=== PATIENT | male | born 1985 | race Caucasian/White ===

== ENCOUNTER 2017-07-13 18:54 | Emergency (ER) | payer BC ==
[~2017-07-13] VITALS: Ht 185.4 cm; Wt 97.7 kg
[2017-07-13] MEDS ORDERED: IBUPROFEN 600 MG TABLET. PO ONE (20:00)
[2017-07-13] MEDS ORDERED: IV NORMAL SALINE 1,000ML 1,000 ML IV SCH (20:00)
[2017-07-13] MEDS ORDERED: KETOROLAC 30 MG/ML VIAL. IV ONE (20:00)
[2017-07-13 20:30] LABS: BASO # 0.1 x10^3/uL (0.0-0.2); BASO % 1 % (0-3); EOS # 0.1 x10^3/uL (0.0-0.7); EOS % 1 % (0-3); HEMATOCRIT 40.8 % (39.0-53.0); HEMOGLOBIN 14.5 g/dL (13.0-17.5); LYMPH # 1.8 x10^3/uL (1.0-4.8); LYMPH % 17 % (24-48); MEAN CORPUSCULAR HEMOGLOBIN 31 pg (25-35); MEAN CORPUSCULAR HGB CONC 36 g/dL (31-37); MEAN CORPUSCULAR VOLUME 87 fL (79-100); MONO # 0.9 x10^3/uL (0.0-1.1); MONO % 8 % (0-9); NEUT # 7.8 x10^3uL (1.8-7.7); NEUT % 74 % (31-73); PLATELET COUNT 178 x10^3/uL (140-400); RED BLOOD COUNT 4.71 x10^6/uL (4.30-5.70); RED CELL DISTRIBUTION WIDTH 12.6 % (11.5-14.5); WHITE BLOOD COUNT 10.6 x10^3/uL (4.0-11.0)
[2017-07-13] MEDS ORDERED: IOHEXOL 300 MG/ML 75 ML VIAL. IV ONE (20:30)
[2017-07-13] MEDS ORDERED: IV NORMAL SALINE 500ML 500 ML ONE (20:32)
[2017-07-13 20:40] LABS: ALBUMIN 4.5 g/dL (3.4-5.0); ALBUMIN/GLOBULIN RATIO 1.3 (1.0-1.7); CALCIUM 9.2 mg/dL (8.5-10.1); CREATININE 1.3 mg/dL (0.7-1.3); GFR 63.6; TOTAL BILIRUBIN 0.4 mg/dL (0.2-1.0); TOTAL PROTEIN 7.9 g/dL (6.4-8.2)
[2017-07-13 20:59] LABS: BACTERIA,URINE 0 /HPF (0-FEW); BILIRUBIN,URINE NEG (NEG); CLARITY,URINE HAZY; COLOR,URINE YELLOW; GLUCOSE,URINE NEG (NEG); NITRITE,URINE NEG (NEG); SQUAMOUS EPITHELIAL CELL,UR FEW /LPF; UROBILINOGEN,URINE 1 mg/dL (0.2 mg/dL)
--- NOTE | 2017-07-13 21:26 | RAD ---
CT ABDOMEN PELVIS WO/W dated 07/13/2017 7:45 PM Indication: Left upper quadrant and left rib pain Comparison: None Technique: Pre and postcontrast CT imaging was performed of the abdomen and pelvis. Multiplanar reconstruction images submitted. One or more of the following individualized dose reduction techniques were utilized for this examination: 1. Automated exposure control 2. Adjustment of the mA and/or kV according to patient size 3. Use of iterative reconstruction technique. Contrast: 75 cc Omnipaque 300 Findings: While reportedly there is contrast injected, there is no significant contrast in the postcontrast images. There are no renal or ureteral calculi. There is no hydronephrosis. Accurate evaluation of the abdominal visceral organs is limited without significant contrast enhancement, no obvious focal abnormality of the liver, spleen or pancreas. There is no adrenal nodularity. Gallbladder is present without obvious intraluminal abnormality by CT. Accurate evaluation of bowel is limited without oral contrast. There is no significant bowel dilatation, free air, free fluid. There may be some small bowel wall thickening in the left upper abdomen. There is retained stool greatest of ascending through transverse colon. Appendix caliber is within normal limits at 0.5 cm, no significant adjacent inflammatory-type change. There is nonspecific lytic lesion posteriorly of the L3 vertebral body. There are multilevel Schmorl's nodes. IMPRESSION: 1. There may be small bowel wall thickening in the left upper quadrant which can be seen with enteritis, no other significant acute abnormality identified. While reportedly contrast was administered, there is no significant contrast enhancement on the postcontrast images. Evaluation of patient's injection site is advised for any signs of contrast infiltration. 2. There is retained stool in the colon. 3.There is nonspecific lytic lesion posteriorly of the L3 vertebral body. There are multilevel Schmorl's nodes. Electronically signed by: Al Mancia MD (07/13/2017 9:23 PM) [facility]
--- NOTE | 2017-07-13 22:11 | EKG ---
[address] [address] Test Date: 2017-07-13 Test Time: 19:33:18 Pat Name: KANDI LI Department: Room: Gender: M [employer]: : 1985 Requested By: GUSTAVO GERBER Order Number: [id number] Reading MD: Measurements Intervals Benedict Rate: 86 P: 38 AZ: 154 QRS: -54 QRSD: 106 T: 36 QT: 362 QTc: 436 Interpretive Statements SINUS RHYTHM ABNORMAL LEFT AXIS DEVIATION LEFT ANTERIOR FASCICULAR BLOCK ABNORMAL ECG RI6.01 No previous ECG available for comparison
--- NOTE | 2017-07-13 23:44 | RAD ---
CHEST PA LATERAL History: Left-sided rib and chest pain Comparison: None. Findings: There is no infiltrate, pneumothorax, or effusion. The cardiac silhouette is within normal limits in size. The trachea is in the midline. No acute osseous abnormality is identified. Impression: 1. There is no evidence of acute cardiopulmonary disease. Electronically signed by: Al Mancia MD (07/13/2017 11:40 PM) [facility]
--- NOTE | 2017-07-14 00:24 | PHYS DOC ---
Past History Past Medical History: No Pertinent History Past Surgical History: No Surgical History Additional Smoking Information: HALF A PACK Alcohol Use: None Drug Use: None Adult General Chief Complaint Chief Complaint: RIB PAIN [facility] HPI 31-year-old male who works at a [employer] now complaining of sudden transient pain in the left flank area. Patient thinks he got a sudden cramp in his left upper abdomen but is not sure if it was his left lower chest. He reports normal bowel and bladder habits and has never had a kidney stone. The pain is now improved. When he had the discomfort it was worse with taking a deep breath and he still feels some mild discomfort if he takes a deep inspiration or coughs. No prodromal illness. Patient was at work and has been feeling fine today. He denies being constipated or having chronic recurrent abdominal pain. No history of intra-abdominal problems. She has no exertional chest pain and is not feeling short of breath at all. No tachycardia on arrival Review of Systems Review of Systems Constitutional: Denies fever or chills [] Eyes: Denies change in visual acuity, redness, or eye pain [] HENT: Denies nasal congestion or sore throat [] Respiratory: Denies cough or shortness of breath [] Cardiovascular: No additional information not addressed in HPI [] GI: Denies abdominal pain, nausea, vomiting, bloody stools or diarrhea [] : Denies dysuria or hematuria [] Musculoskeletal: Denies back pain or joint pain [] Integument: Denies rash or skin lesions [] Neurologic: Denies headache, focal weakness or sensory changes [] Endocrine: Denies polyuria or polydipsia [] Current Medications Current Medications Current Medications Medications (Trade) Dose Ordered Sig/Gaby Start Time Stop Time Status Last Admin Dose Admin Ibuprofen (Motrin) 600 mg 1X ONCE 07/13/17 20:00 07/13/17 20:01 DC 07/13/17 20:17 600 MG Iohexol (Omnipaque 300 Mg/ml) 75 ml 1X ONCE 07/13/17 20:30 07/13/17 20:31 DC 07/13/17 20:53 75 ML Ketorolac Tromethamine (Toradol) 30 mg 1X ONCE 07/13/17 20:00 07/13/17 20:01 DC 07/13/17 20:16 30 MG Sodium Chloride 500 ml @ As Directed STK-MED ONCE 07/13/17 20:32 07/13/17 20:33 DC Allergies Allergies Allergies Uncoded Allergies Type Severity Reaction Last Updated Verified MINT Adverse Reaction Unknown 07/13/17 Physical Exam Physical Exam Well-appearing 31-year-old male in no acute distress. Supple neck clear lungs regular rate and rhythm no rib tenderness. Symmetrical breath sounds which are normal. No subcutaneous air of the chest wall. Minimal left subcostal tenderness without guarding or rebound. Normal bowel sounds no mass or megaly. Nondistended with no skin changes. No CVA tenderness. No reproducible focal rib tenderness. Constitutional: Well developed, well nourished, no acute distress, non-toxic appearance. [] HENT: Normocephalic, atraumatic, bilateral external ears normal, oropharynx moist, no oral exudates, nose normal. [] Eyes: PERRLA, EOMI, conjunctiva normal, no discharge. [] Neck: Normal range of motion, no tenderness, supple, no stridor. [] Cardiovascular:Heart rate regular rhythm, no murmur [] Lungs & Thorax: Bilateral breath sounds clear to auscultation [] Abdomen: Bowel sounds normal, soft, as above, no masses, no pulsatile masses. [ ] Skin: Warm, dry, no erythema, no rash. [] Back: No tenderness, no CVA tenderness. [] Extremities: No tenderness, no cyanosis, no clubbing, ROM intact, no edema. [] Neurologic: Alert and oriented X 3, normal motor function, normal sensory function, no focal deficits noted. [] Psychologic: Affect normal, judgement normal, mood normal. [] Current Patient Data Vital Signs Vital Signs Date Time Temp Pulse Resp B/P (MAP) Pulse Ox O2 Delivery O2 Flow Rate FiO2 07/13/17 19:30 98.0 95 20 97 Room Air Lab Results Laboratory Tests Test 07/13/17 20:00 White Blood Count 10.6 x10^3/uL (4.0-11.0) Red Blood Count 4.71 x10^6/uL (4.30-5.70) Hemoglobin 14.5 g/dL (13.0-17.5) Hematocrit 40.8 % (39.0-53.0) Mean Corpuscular Volume 87 fL (79-100) Mean Corpuscular Hemoglobin 31 pg (25-35) Mean Corpuscular Hemoglobin Concent 36 g/dL (31-37) Red Cell Distribution Width 12.6 % (11.5-14.5) Platelet Count 178 x10^3/uL (140-400) Neutrophils (%) (Auto) 74 % (31-73) H Lymphocytes (%) (Auto) 17 % (24-48) L Monocytes (%) (Auto) 8 % (0-9) Eosinophils (%) (Auto) 1 % (0-3) Basophils (%) (Auto) 1 % (0-3) Neutrophils # (Auto) 7.8 x10^3uL (1.8-7.7) H Lymphocytes # (Auto) 1.8 x10^3/uL (1.0-4.8) Monocytes # (Auto) 0.9 x10^3/uL (0.0-1.1) Eosinophils # (Auto) 0.1 x10^3/uL (0.0-0.7) Basophils # (Auto) 0.1 x10^3/uL (0.0-0.2) Urine Collection Type Unknown Urine Color Yellow Urine Clarity Hazy Urine pH 5.5 Urine Specific [place] 1.025 Urine Protein Trace (NEG-TRACE) Urine Glucose (UA) Neg mg/dL (NEG) Urine Ketones (Stick) 15 mg/dL (NEG) Urine Blood Neg (NEG) Urine Nitrite Neg (NEG) Urine Bilirubin Neg (NEG) Urine Urobilinogen Dipstick 1 mg/dL (0.2 mg/dL) Urine Leukocyte Esterase Neg (NEG) Urine RBC 1-2 /HPF (0-2) Urine WBC 5-10 /HPF (0-4) Urine Squamous Epithelial Cells Few /LPF Urine Bacteria 0 /HPF (0-FEW) Urine Mucus Marked /LPF Sodium Level 140 mmol/L (136-145) Potassium Level 4.0 mmol/L (3.5-5.1) Chloride Level 105 mmol/L (98-107) Carbon Dioxide Level 29 mmol/L (21-32) Anion Gap 6 (6-14) Blood Urea Nitrogen 18 mg/dL (8-26) Creatinine 1.3 mg/dL (0.7-1.3) Estimated GFR (Cockcroft-Gault) 63.6 BUN/Creatinine Ratio 14 (6-20) Glucose Level 102 mg/dL (70-99) H Calcium Level 9.2 mg/dL (8.5-10.1) Total Bilirubin 0.4 mg/dL (0.2-1.0) Aspartate Amino Transferase (AST) 21 U/L (15-37) Alanine Aminotransferase (ALT) 37 U/L (16-63) Alkaline Phosphatase 68 U/L (46-116) Total Protein 7.9 g/dL (6.4-8.2) Albumin 4.5 g/dL (3.4-5.0) Albumin/Globulin Ratio 1.3 (1.0-1.7) Lipase 126 U/L (73-393) EKG EKG EKG with Normal sinus rhythm with left axis deviation. Left anterior hemiblock no tachycardia and no STEMI interpreted by me[] Radiology/Procedures Radiology/Procedures Chest x-ray with no acute disease interpreted by me report reviewed CT abdomen and pelvis unremarkable for intra-abdominal or retroperitoneal findings however incidental finding of lytic spinal lesion noted and discussed with patient[] Course & Med Decision Making Course & Med Decision Making Pertinent Labs and Imaging studies reviewed. (See chart for details) Signs and symptoms consistent with pleuritic pain in the left lung versus renal colic versus bowel colic. Patient's pain was sudden and now dramatically improved. Exam essentially unremarkable. Full workup including CT abdomen and pelvis benign except incidental finding of lytic spinal lesion. This was discussed at length with the patient is weren't critical importance of close follow-up with his primary care doctor for reevaluation and referral for MRI specifically to rule out spinal cancer. Patient comfortable and asymptomatic on multiple re-exams. No further workup or treatment indicated. Patient agrees with outpatient follow-up and strict return precautions given [] Dragon Disclaimer Dragon Disclaimer This chart was dictated in whole or in part using Voice Recognition software in a busy, high-work load, and often noisy Emergency Department environment. It may contain unintended and wholly unrecognized errors or omissions. Departure Departure: Impression: Primary Impression: Abdominal pain Additional Impression: Lytic lesion of bone on x-ray Disposition: HOME, SELF-CARE Condition: IMPROVED Referrals: PCP,NO (PCP) Patient Instructions: Abdominal Pain (Nonspecific) Additional Instructions: It is not clear what caused her sudden episode of abdominal pain tonight. Your CAT scan showed no intra-abdominal emergency or abnormal findings of any kind except there was an incidental finding of an abnormality in the bone of your third lumbar vertebra you been given a copy of the CAT scan result to follow up with your doctor to discuss referral for MRI of the spine which will be necessary make sure the lesion is benign and to rule out bone cancer. Take ibuprofen 800 mg every 6 hours and Tylenol every 4 hours as needed for any pain. Follow-up with your doctor tomorrow and return immediately for new severe worsening symptoms Problem Qualifiers GUSTAVO GERBER MD Jul 14, 2017 00:24
[2017-07-14 00:30] VITALS: BP 136/79
== END 2017-07-14 00:30 | disposition home or self-care (01) ==
LOC: ER 18:54
DX: M89.9 Disorder of bone, unspecified (principal); R10.12 Left upper quadrant pain; F17.200 Nicotine dependence, unspecified, uncomplicated; Z88.8 Allergy status to other drugs, medicaments and biological substances
CPT/HCPCS: 36415; 71020; 74178; 80053; 81001; 83690; 85025; 93005; 96374; 99285; J1885; Q9967